=== PATIENT | male | born 1950 | race Caucasian/White ===

== ENCOUNTER 2017-04-16 22:52 | Observation (INO) | payer MEDICARE, OTHER ==
[2017-04-16 23:05] VITALS: TEMP 98.1
[2017-04-16] MEDS ORDERED: RANITIDINE HCL 150 MG TABLET (FP) PO ONE (23:39)
[2017-04-16] MEDS ORDERED: BISMUTH SUBSALICYLATE 262 MG TAB.CHEW PO ONE (23:39)
[2017-04-16] MEDS ORDERED: MAG HYDROX/AL HYDROX/SIMETH 30 ML UNIT-DOSE CUP PO ONE (23:39)
[2017-04-16] MEDS ORDERED: MAG HYDROX/AL HYDROX/SIMETH 30 ML UNIT-DOSE CUP ONE (23:47)
[2017-04-16] MEDS ORDERED: RANITIDINE HCL 150 MG TABLET (FP) ONE (23:47)
--- NOTE | 2017-04-16 23:49 | PDOC ---
History of Present Illness - General Chief Complaint: Blood Pressure Problem Stated Complaint: HIGH BP Time Seen by Provider: 04/16/17 23:22 - History of Present Illness Initial Comments: 04/16/17 23:41 66 yo M with h/o HTN, HLD, who presents with epigastric pain. Pt reports unrelenting, stable, substernal burning pain of 2 days duration that has improved with milk of magnesia. Pain worse with food and associated with nausea without vomitting, and 1 episode of watery stool 3 days ago. Pt. attributes pain to elevated blood pressure (192/100 at 1700) with SBP 170's for past 2 days. He complains of LEGER, but denies vision changes, cough, SOB, flank pain, hematuria. lightheadedness, weakness, chest pain, slurred speech. Also denies fevers/chills, abdominal pain, constipation/diarrhea, urinary complaints. Reports adherence to medication regimen with Metoprolol 25 mg, Amlodipine 2.5mg , and Lisinopril/HCTZ 10/12.5. Past History - Past Medical History Allergies/Adverse Reactions: Allergies Allergy/AdvReac Type Severity Reaction Status Date / Time No Known Allergies Allergy Verified 09/06/15 23:44 Home Medications: Ambulatory Orders Aspirin [ASA -] 81 mg PO DAILY 05/26/15 Amlodipine Besylate [Norvasc -] 2.5 mg PO DAILY 07/10/15 Atorvastatin Ca [Lipitor] 10 mg PO HS 07/10/15 Fluoxetine HCl [Prozac] 20 mg PO DAILY 04/16/17 Gabapentin 100 mg PO DAILY 04/16/17 Lisinopril/Hydrochlorothiazide [Lisinopril-Hctz 10-12.5 mg Tab] 1 each PO DAILY 04/16/17 Meloxicam 7.5 mg PO DAILY PRN 04/16/17 Metoprolol Tartrate 25 mg PO HS 04/16/17 HTN: Yes Hypercholesterolemia: Yes - Immunization History Immunization Up to Date: Yes - Suicide/Smoking/Psychosocial Hx Smoking History: Never smoked Have you smoked in the past 12 months: No Hx Alcohol Use: No Drug/Substance Use Hx: No Substance Use Type: None Review of Systems - Review of Systems Comments:: 04/16/17 23:53 GENERAL/CONSTITUTIONAL: No fever or chills. No weakness. HEAD, EYES, EARS, NOSE AND THROAT: No change in vision. No ear pain or discharge. No sore throat.- CARDIOVASCULAR: No chest pain or shortness of breath RESPIRATORY: No cough, wheezing, or hemoptysis. GASTROINTESTINAL: No nausea, vomiting, diarrhea or constipation. GENITOURINARY: No dysuria, frequency, or change in urination. MUSCULOSKELETAL: No joint or muscle swelling or pain. No neck or back pain. SKIN: No rash NEUROLOGIC: + Headache. No vertigo, loss of consciousness, or change in strength /sensation. ENDOCRINE: No increased thirst. No abnormal weight change HEMATOLOGIC/LYMPHATIC: No anemia, easy bleeding, or history of blood clots. ALLERGIC/IMMUNOLOGIC: No hives or skin allergy. *Physical Exam - Vital Signs Last Vital Signs Temp Pulse Resp BP Pulse Ox 98.1 F 103 H 16 169/89 99 04/16/17 23:00 04/16/17 23:00 04/16/17 23:00 04/16/17 23:13 04/16/17 23:00 - Physical Exam Comments: 04/16/17 23:53 GENERAL: Awake, alert, and fully oriented, in no acute distress HEAD: No signs of trauma, normocephalic, atraumatic EYES:Absent papilledema, or retinal vessel engorgement. PERRLA, EOMI, sclera anicteric, conjunctiva clear ENT: Auricles normal inspection, hearing grossly normal, nares patent, oropharynx clear without exudates. Moist mucosa NECK: Normal ROM, supple, no lymphadenopathy, JVD, or masses LUNGS: No distress, speaks full sentences, clear to auscultation bilaterally HEART: Regular rate and rhythm, normal S1 and S2, no murmurs, rubs or gallops, peripheral pulses normal and equal bilaterally. ABDOMEN: + Ventral hernia. Soft, nontender, normoactive bowel sounds. No guarding, no rebound. No masses EXTREMITIES : Normal inspection, Normal range of motion, no edema. No clubbing or cyanosis. NEUROLOGICAL: Cranial nerves II through XII grossly intact. Normal speech, normal gait, no focal sensorimotor deficits SKIN: Warm, Dry, normal turgor, no rashes or lesions noted. Heart Score/ECG Review - History History: Slightly suspicious - Electrocardiogram EKG: Normal - Age Age: >/= 65 - Risk Factors Risk Factors Heart Score: Yes Hx Hypercholesterolemia, Yes Hx Hypertension, Yes Hx Diabetes, Yes Positive family hx of cardiac disease Based on the list above the patient has:: >/=3 risk factors or Hx atherosclerotic disease - Troponin Troponin: </= normal limit - Score Heart Score - Total: 4 - ECG Intrepretation Rhythm: Regular Rhythm - [place]: Normal - ECG Impressions Comment:: 04/17/17 01:59 EKG: NSR absent T wave inversion, No ST elevation, Absent T wave inversion. ED Treatment Course - LABORATORY CBC & Chemistry Diagram: 04/17/17 00:01 04/17/17 00:01 Medical Decision Making - Medical Decision Making 04/16/17 23:56 66 yo M with h/o HTN, HLD, who presents with burning epigastric pain and nausea of 2 days duration. No other associated symptoms. He attributes symptoms to HTN , with isolated BP of 192/100and elevated SBP 170's for 2 days despite med compliance. No evidence of end organ damage on physical exam or history. Physical exam unremarkable. BP 169/89 on arrival. Pain most likely 2/2 GERD/ Dyspepsia. Low suspicion for cholelithiasis, pancreatitis, or ACS/ID. ED Course: CBC, CMP, Lipase, EKG Maloox, Pepcid, Ranitidine 04/17/17 01:55 Heart Score 4-6 13% risk of MACE. Admit for obs/cardiac consult. 04/17/17 01:56 AST/ALT: 58/120 CK MB 4.715 04/17/17 01:59 EKG: NSR Admitting [facility] Consulted. Checked Out to B[employer]INFORMAT[employer] ENGINEER Terri Fragoso *DC/Admit/Observation/Transfer Diagnosis at time of Disposition: Hypertension - Discharge Dispostion Admit: Yes - Referrals Referrals: Anastacio Arriola MD [Primary Care Provider] -
[2017-04-17 00:08] LABS: BASOPHIL 0.5 % (0-2.0); EOSINOPHIL 2.2 % (0-4.5); MCH 25.9 pg (25.7-33.7); MCHC 33.6 g/dl (32.0-35.9); MEAN CELL VOLUME 77.2 fl (80-96); MEAN PLT VOLUME 7.9 fl (7.5-11.1); NEUTROPHILS 61.3 % (42.8-82.8); PLATELET COUNT 181 K/MM3 (134-434); RDW 13.9 % (11.9-15.9); WHITE BLOOD COUNT 7.2 K/mm3 (4.0-10.0)
[2017-04-17 00:47] LABS: ALBUMIN 4.1 g/dl (3.4-5.0); ANION GAP 10 (8-16); BILIRUBIN,TOTAL 0.5 mg/dL (0.2-1.0); CALCIUM 8.8 mg/dL (8.5-10.1); CO2 28 mmol/L (21-32); CREATININE 0.8 mg/dL (0.7-1.3); GLUCOSE,RANDOM 110 mg/dL (74-106); SGOT/AST 58 U/L (15-37); SGPT/ALT 120 U/L (12-78); TOT PROT 7.9 g/dl (6.4-8.2)
[2017-04-17 00:50] LABS: ALK PHOS 113 U/L (45-117)
[2017-04-17 00:59] LABS: CPK 524 IU/L (39-308); TROPONIN I < 0.02 ng/ml (0.00-0.05)
[2017-04-17] MEDS ORDERED: ASPIRIN 325 MG ENTERIC COATED TABLET (FP) PO ONE (01:53)
--- NOTE | 2017-04-17 02:02 | PDOC ---
Attending Attestation - Resident Resident Name: Jesus Rinaldison - ED Attending Attestation I have performed the following: I have examined & evaluated the patient, The case was reviewed & discussed with the resident, I agree w/resident's findings & plan, Exceptions are as noted - HPI HPI: 04/17/17 01:54 66-year-old male with history of hypertension, presents to the ER complaining of intermittent, substernal chest burning for the past 3 days, intermittently exacerbated by food, without nausea/vomiting/diarrhea/melena/bright red blood per rectum. - Physicial Exam PE: 04/17/17 01:54 Patient is awake and alert, nontoxic-appearing, mildly hypertensive on initial evaluation. EXAMINATION CONSTITUTIONAL: Well-appearing; well-nourished; in no apparent distress HEAD: Normocephalic; atraumatic EYES: PERRL; EOM intact ENMT: External appears normal; normal oropharynx NECK: Supple; non-tender; no cervical lymphadenopathy CARD: Normal S1, S2; no murmurs, rubs, or gallops RESP: Normal chest excursion with respiration; breath sounds clear and equal bilaterally; no wheezes, rhonchi, or rales ABD: Soft, non-distended; non-tender; no palpable organomegaly, + easily reducible ventral hernia; EXT: Normal ROM in all four extremities; non-tender to palpation; distal pulses intact SKIN: Warm, dry, no rash NEURO: No focal neurological deficiencies. - Medical Decision Making 04/17/17 01:55 66-year-old male with history of hypertension presents with intermittent substernal chest discomfort. Differential diagnoses includes dyspepsia versus gastritis versus esophagitis versus ACS. We will obtain CBC/CMP/cardiac profile. We'll administer H2 blockers, Maalox for suspected dyspepsia; We'll administer aspirin for ACS. EKG shows no evidence of acute ischemia. Chest x- ray reveals no evidence of infiltrate or effusion. Patient's heart score is noted to be 4. Patient will be placed in observation/telemetry for further cardiac evaluation. Heart Score/ECG Review - History History: Moderately suspicious - Electrocardiogram EKG: Normal - Age Age: >/= 65 - Risk Factors Risk Factors Heart Score: Yes Hx Hypertension Based on the list above the patient has:: 1-2 risk factors - Troponin Troponin: </= normal limit - Score Heart Score - Total: 4
--- NOTE | 2017-04-17 02:27 | HP ---
CHIEF COMPLAINT: Epigastric and Chest Pain PCP: Dr. Anastacio Arriola HISTORY OF PRESENT ILLNESS: This is a 66 y/o man with a past medical history of HTN, HLD. Who presents to the ED with epigastric pain and burning to midsternum x 2 days. Patient is Lithuanian speaking, [employer] line used #[id number]. Patient reports having a subjective fever which he describes "as his head felt hot". Patient reports the pain as intermittent burning worse when he eats food. Patient reports having one loose BM. Patient denies cough, dizziness, palpitations, nausea, vomiting, diarrhea, constipation, dsyuria. ER course was notable for: (1) Troponin I <0.02 (2) EKG (3) AST 58, ALT 120, Alk Phos 113 Recent Travel: None PAST MEDICAL HISTORY: HTN HLD PAST SURGICAL HISTORY: Social History: Smoking: Never Alcohol: Former- last drink 10 yrs ago Drugs: Denies Family History: Non-Contributory Allergies No Known Allergies Allergy (Verified 09/06/15 23:44) HOME MEDICATIONS: Home Medications Medication Instructions Recorded Aspirin [ASA -] 81 mg PO DAILY 05/26/15 Amlodipine Besylate [Norvasc -] 2.5 mg PO DAILY 07/10/15 Atorvastatin Ca [Lipitor] 10 mg PO HS 07/10/15 Fluoxetine HCl [Prozac] 20 mg PO DAILY 04/16/17 Gabapentin 100 mg PO DAILY 04/16/17 Lisinopril/Hydrochlorothiazide 1 each PO DAILY 04/16/17 [Lisinopril-Hctz 10-12.5 mg Tab] Meloxicam 7.5 mg PO DAILY PRN 04/16/17 Metoprolol Tartrate 25 mg PO HS 04/16/17 REVIEW OF SYSTEMS CONSTITUTIONAL: fever Absent: chills, diaphoresis, generalized weakness, malaise, loss of appetite, weight change HEENT: Absent: rhinorrhea, nasal congestion, throat pain, throat swelling, difficulty swallowing, mouth swelling, ear pain, eye pain, visual changes CARDIOVASCULAR: Absent: chest pain, syncope, palpitations, irregular heart rate, lightheadedness , peripheral edema RESPIRATORY: shortness of breath Absent: cough, dyspnea with exertion, orthopnea, wheezing, stridor, hemoptysis GASTROINTESTINAL: abdominal pain Absent: abdominal distension, nausea, vomiting, diarrhea, constipation, melena , hematochezia GENITOURINARY: Absent: dysuria, frequency, urgency, hesitancy, hematuria, flank pain, genital pain MUSCULOSKELETAL: Absent: myalgia, arthralgia, joint swelling, back pain, neck pain SKIN: Absent: rash, itching, pallor HEMATOLOGIC/IMMUNOLOGIC: Absent: easy bleeding, easy bruising, lymphadenopathy, frequent infections ENDOCRINE: Absent: unexplained weight gain, unexplained weight loss, heat intolerance, cold intolerance NEUROLOGIC: headache, Absent: focal weakness or paresthesias, dizziness, unsteady gait, seizure, mental status changes, bladder or bowel incontinence PSYCHIATRIC: Absent: anxiety, depression, suicidal or homicidal ideation, hallucinations. PHYSICAL EXAMINATION Vital Signs - 24 hr 04/16/17 04/16/17 23:00 23:13 Temperature 98.1 F Pulse Rate 103 H Respiratory 16 Rate Blood Pressure 181/89 Blood Pressure 169/89 [Left Arm] O2 Sat by Pulse 99 Oximetry (%) GENERAL: Awake, alert, and fully oriented, in no acute distress. HEAD: Normal with no signs of trauma. EYES: Pupils equal, round and reactive to light, extraocular movements intact, sclera anicteric, no lid lag. conjunctiva injected EARS, NOSE, THROAT: Ears normal, nares patent, oropharynx clear without exudates. Dry mucous membranes. NECK: Normal range of motion, supple without lymphadenopathy, JVD, or masses. LUNGS: Breath sounds equal, clear to auscultation bilaterally. No wheezes, and no crackles. No accessory muscle use. HEART: Regular rate and rhythm, normal S1 and S2 without murmur, rub or gallop. ABDOMEN: Obese, soft, nontender, normoactive bowel sounds, no guarding, no rebound, no masses. No hepatomegaly or splenomegaly. distended, reducible ventral hernia MUSCULOSKELETAL: Normal range of motion at all joints. No bony deformities or tenderness. No CVA tenderness. UPPER EXTREMITIES: 2+ pulses, warm, well-perfused. No cyanosis. No clubbing. No peripheral edema. LOWER EXTREMITIES: 2+ pulses, warm, well-perfused. No calf tenderness. No peripheral edema. NEUROLOGICAL: Cranial nerves II-XII intact. Normal speech. Gait not observed. PSYCHIATRIC: Cooperative. Good eye contact. Appropriate mood and affect. SKIN: Warm, dry, normal turgor, no rashes or lesions noted, normal capillary refill. Jaundiced Laboratory Results - last 24 hr 04/17/17 04/17/17 04/17/17 00:01 00:01 00:01 WBC 7.2 RBC 6.01 H Hgb 15.6 Hct 46.5 MCV 77.2 L MCH 25.9 MCHC 33.6 RDW 13.9 Plt Count 181 MPV 7.9 Neutrophils % 61.3 Lymphocytes % 26.0 Monocytes % 10.0 Eosinophils % 2.2 Basophils % 0.5 Sodium 139 Potassium 3.5 Chloride 101 Carbon Dioxide 28 Anion Gap 10 BUN 18 Creatinine 0.8 Creat Clearance w eGFR > 60 Random Glucose 110 H Calcium 8.8 Total Bilirubin 0.5 AST 58 H D ALT 120 H D Alkaline Phosphatase 113 Creatine Kinase Creatine Kinase Index CK-MB (CK-2) Troponin I Total Protein 7.9 Albumin 4.1 Lipase 179 04/17/17 00:29 WBC RBC Hgb Hct MCV MCH MCHC RDW Plt Count MPV Neutrophils % Lymphocytes % Monocytes % Eosinophils % Basophils % Sodium Potassium Chloride Carbon Dioxide Anion Gap BUN Creatinine Creat Clearance w eGFR Random Glucose Calcium Total Bilirubin AST ALT Alkaline Phosphatase Creatine Kinase 524 H Creatine Kinase Index 0.8 CK-MB (CK-2) 4.715 H Troponin I < 0.02 Total Protein Albumin Lipase ASSESSMENT/PLAN: This is a 66 y/o man with a PMHx of: HTN, HLD. Placed on Tele Observation for Chest Pain r/o ACS, Epigastric Pain for further evaluation of their emergent condition. Plan: 1. Chest Pain - r/o ACS vs Dyspepsia - Tele monitoring - HEART Score 4 - ALEX Risk Index 26 (low) - Appreciate Cardiac Consult - Serial Enzymes - EKG- NSR with no ST or TWI - Chest Xray- image no infiltrates no effusions - Asa, GI cocktail given in ED with improvement - Continue Asa - Pepcid - f/u with GI in outpatient 2. Epigastric Pain - Likely Dyspepsia - r/o ACS - On exam abdomen distended, BS present, +splenomegaly - Abdominal sono in am 3. HTN - Not well controlled - Monitor BP - Continue home meds - Monitor renal function 4. Hyperlipidemia - Continue Lipitor - LFTs mildly elevated, will continue to monitor and treat accordingly 5. Transaminitis - Likely secondary to statin - Will continue to monitor LFTs, and adjust accordingly 6. FEN - Tolerates PO Fluids - Replete lytes as indicated - Low Na Diet as tolerated 7. DVT Prophylaxis - OOB - SCDs Code Status: Full Code Problem List - Problem (1) Burning chest pain Code(s): R07.89 - OTHER CHEST PAIN (2) Acute epigastric pain Code(s): R10.13 - EPIGASTRIC PAIN (3) Hypertension Code(s): I10 - ESSENTIAL (PRIMARY) HYPERTENSION (4) Elevated LFTs Code(s): R79.89 - OTHER SPECIFIED ABNORMAL FINDINGS OF BLOOD CHEMISTRY (5) Elevated serum glucose Code(s): R73.9 - HYPERGLYCEMIA, UNSPECIFIED (6) HLD (hyperlipidemia) Code(s): E78.5 - HYPERLIPIDEMIA, UNSPECIFIED Visit type - Emergency Visit Emergency Visit: Yes ED Registration Date: 04/17/17 Care time: The patient presented to the Emergency Department on the above date and was hospitalized for further evaluation of their emergent condition. - New Patient This patient is new to me today: Yes Date on this admission: 04/17/17 - Critical Care Critical Care patient: No
[2017-04-17] MEDS ORDERED: ASPIRIN 325 MG ENTERIC COATED TABLET (FP) ONE (02:46)
[2017-04-17 08:02] LABS: AMYLASE 62 U/L (25-115); CHOLESTEROL 179 mg/dL (50-200); MAGNESIUM 2.5 mg/dL (1.8-2.4); PHOSPHOROUS 2.3 mg/dL (2.5-4.9)
[2017-04-17 08:04] LABS: CPK 363 IU/L (39-308); TROPONIN I < 0.02 ng/ml (0.00-0.05)
--- NOTE | 2017-04-17 09:04 | EKG ---
Test Reason : Blood Pressure : / mmHG Vent. Rate : 085 BPM Atrial Rate : 085 BPM P-R Int : 138 ms QRS Dur : 078 ms QT Int : 382 ms P-R-T Axes : 048 028 059 degrees QTc Int : 454 ms NORMAL SINUS RHYTHM NORMAL ECG WHEN COMPARED WITH ECG OF 26-MAY-2015 21:41, T WAVE INVERSION NO LONGER EVIDENT IN INFERIOR LEADS Confirmed by QUINN GOMEZ, JOSE GUADALUPE ([id number]) on 04/17/2017 9:04:16 AM Referred By: Confirmed By:JOSE GUADALUPE BALL MD
[2017-04-17] MEDS ORDERED: GABAPENTIN 100 MG CAPSULE (FP) PO SCH (10:00)
[2017-04-17] MEDS ORDERED: FLUoxetine HCL 20 MG CAPSULE (FP) PO SCH (10:00)
[2017-04-17] MEDS ORDERED: amLODIPine BESYLATE 2.5 MG TABLET (FP) PO SCH ×3 (10:00→11:11)
[2017-04-17] MEDS ORDERED: LISINOPRIL 10 MG TABLET (FP) PO SCH (10:00)
[2017-04-17] MEDS ORDERED: HYDROCHLOROTHIAZIDE 12.5 MG CAPSULE (FP) PO SCH (10:00)
[2017-04-17] MEDS ORDERED: FAMOTIDINE 20 MG/50 ML IVPB 50 ML IVPB SCH (10:00)
--- NOTE | 2017-04-17 10:15 | CONSULT ---
Consult - text type - Consultation Consultation Note: Cardiology 66 yo M with h/o HTN, HLD, who presents with epigastric pain, substernal burning pain of 2 days that has improved with milk of magnesia. Pain worse with food and associated with nausea without vomitting, and 1 episode of watery stool 3 days ago. Pt. attributes pain to elevated blood pressure (192/100 at 1700) with SBP 170's for past 2 days. RX Metoprolol 25 mg, Amlodipine 2.5mg, and Lisinopril/HCTZ 03/31.5. social NA allergy NA FH NA Op NA PMH HTN, lipids PE: vitals stable normal cardiio-pulmonary exam abdomen soft no leg edema Impression: atypical chest pains No evidence of RI, CHF, arrythmia or cardiac decompensation BP elevated, borderline control currently Rec: He can be discharged with stress test Tuesday in my office, but if stays, can order in-hosp for Tuesday Amlodipine to 5 mg daily
[2017-04-17 10:49] VITALS: BMI 34.2
--- NOTE | 2017-04-17 13:14 | DS ---
Physical Exam: SUBJECTIVE: Patient seen and examined OBJECTIVE: Vital Signs Period Temp Pulse Resp BP Sys/[place] Pulse Ox Last 24 Hr 80-95 18-18 152-163/90-98 95-98 PHYSICAL EXAM GENERAL: The patient is awake, alert, and fully oriented, in no acute distress. HEAD: Normal with no signs of trauma. EYES: PERRL, extraocular movements intact, sclera anicteric, conjunctiva clear. ENT: Ears normal, nares patent, oropharynx clear without exudates, moist mucous membranes. NECK: Trachea midline, full range of motion, supple. LUNGS: Breath sounds equal, clear to auscultation bilaterally, no wheezes, no crackles, no accessory muscle use. HEART: Regular rate and rhythm, S1, S2 without murmur, rub or gallop. ABDOMEN: Soft, nontender, nondistended, normoactive bowel sounds, no guarding, no rebound, no hepatosplenomegaly, no masses. EXTREMITIES: 2+ pulses, warm, well-perfused, no edema. NEUROLOGICAL: Cranial nerves II through XII grossly intact. Normal speech, gait not observed. PSYCH: Normal mood, normal affect. SKIN: Warm, dry, normal turgor, no rashes or lesions noted. LABS Laboratory Results - last 24 hr 04/17/17 04/17/17 04/17/17 06:00 06:00 06:00 Hemoglobin A1c % 5.7 Phosphorus 2.3 L Magnesium 2.5 H Creatine Kinase 363 H Creatine Kinase Index 0.9 CK-MB (CK-2) 3.297 Troponin I < 0.02 Triglycerides 185 H Cholesterol 179 Total LDL Cholesterol 111 H HDL Cholesterol 45 Total Amylase 62 HOSPITAL COURSE: Date of Admission:04/17/17 Date of Discharge: 04/17/17 Minutes to complete discharge: 35 Discharge Summary Reason For Visit: CHEST PAIN Current Active Problems Acute epigastric pain (Acute) Burning chest pain (Acute) Elevated LFTs (Acute) Elevated serum glucose (Acute) HLD (hyperlipidemia) (Acute) Hypertension (Acute) Condition: Improved - Instructions Diet, Activity, Other Instructions: You are to have a cardiac stress test tomorrow morning at Dr. Whittington's office. His address and phone number are included in this discharge packet. Call his office at 9:00am tomorrow to find out the time of your test. IT IS VERY IMPORTANT YOU FOLLOW UP WITH DR. WHITTINGTON. A new prescription has been sent to your pharmacy for an INCREASED dose of amlodipine. Be sure to take this higher dose. Be sure to take all of your blood pressure medications every day. Return to the emergency department for any new or worsening symptoms. Referrals: Anastacio Arriola MD [Primary Care Provider] - Luca Whittington MD [Staff Physician] - 04/18/17 9:00 am Disposition: HOME - Home Medications Comprehensive Discharge Medication List: Ambulatory Orders Aspirin [ASA -] 81 mg PO DAILY 05/26/15 Atorvastatin Ca [Lipitor] 10 mg PO HS 07/10/15 Fluoxetine HCl [Prozac] 20 mg PO DAILY 04/16/17 Gabapentin 100 mg PO DAILY 04/16/17 Lisinopril/Hydrochlorothiazide [Lisinopril-Hctz 10-12.5 mg Tab] 1 each PO DAILY 04/16/17 Metoprolol Tartrate 25 mg PO HS 04/16/17 Amlodipine Besylate [Norvasc -] 5 mg PO DAILY #30 tablet 04/17/17 This patient is new to me today: Yes Date on this admission: 04/17/17 Emergency Visit: Yes ED Registration Date: 04/17/17 Care time: The patient presented to the Emergency Department on the above date and was hospitalized for further evaluation of their emergent condition. Critical Care patient: No - Discharge Referral Referred to [facility] No
[2017-04-17 13:40] VITALS: BP 148/83; PULSE 83
[2017-04-17] MEDS ORDERED: METOPROLOL TARTRATE 25 MG TABLET (FP) PO SCH (22:00)
[2017-04-17] MEDS ORDERED: ATORVASTATIN CA 10 MG TABLET (FP) PO SCH (22:00)
[2017-04-18] MEDS ORDERED: ASPIRIN 81 MG CHEWABLE TABLETS PO SCH (10:00)
== END 2017-04-17 13:46 | disposition home or self-care (01) ==
LOC: JER 22:52 → JERBED 04-17 03:09
PROVIDERS: ADMIT Internal Medicine; ATTEND Nurse Practitioner Acute Care
DX: I10 Essential (primary) hypertension (principal); E78.5 Hyperlipidemia, unspecified; Z79.82 Long term (current) use of aspirin; R74.0 Nonspecific elevation of levels of transaminase and lactic acid dehydrogenase [LDH]; R07.9 Chest pain, unspecified; R94.5 Abnormal results of liver function studies; R73.9 Hyperglycemia, unspecified
CPT/HCPCS: 36415; 71010-TC; 76705-TC; 80053; 80061; 82150; 82550; 82553; 83036; 83690; 83721; 83735; 84100; 84484; 85025; 93005; 93010; 99284-25; G0378

== ENCOUNTER 2019-01-06 12:25 | Emergency (ER) | payer MEDICARE, OTHER ==
[2019-01-06 12:29] VITALS: BP 154/69; PULSE 74; TEMP 97.8; BMI 33.3
[2019-01-06] MEDS ORDERED: MAG HYDROX/AL HYDROX/SIMETH 30 ML UNIT-DOSE CUP PO ONE (13:08)
[2019-01-06] MEDS ORDERED: RANITIDINE HCL 150 MG TABLET (FP) PO ONE (13:08)
--- NOTE | 2019-01-06 13:15 | PDOC ---
History of Present Illness - General Chief Complaint: Shortness of Breath Stated Complaint: SOB Time Seen by Provider: 01/06/19 12:55 History Source: Patient Exam Limitations: No Limitations - History of Present Illness Initial Comments: 01/06/19 13:15 68 yo male pmh of HTN, HLD and GERD who presents to the ED with non exertional substernal chest burning. Pt reports eating normal meal of rice and beans last night, laying down in bed right after leading to dry throat, substernal chest burning and feelings of his throat closing with associated belching last night. Symptoms have resolved however to to severity of symptoms, pt came to the ED. Pt has hx of GERD, diagnosed by EGD and put on omeprazole, has not taken it in 3 months due to not seeing is doctor for refills. Pt last stress echo 1 year ago reported as normal (does not know oracle analyst name), no hx of VA, non exertional pain, no recent travel, calf tenderness, SOB, F/C/N/V, new back pain. Past History - Past Medical History Allergies/Adverse Reactions: Allergies Allergy/AdvReac Type Severity Reaction Status Date / Time No Known Allergies Allergy Verified 01/06/19 12:29 Home Medications: Ambulatory Orders Aspirin [ASA -] 81 mg PO DAILY 05/26/15 Atorvastatin Ca [Lipitor] 10 mg PO HS 07/10/15 Fluoxetine HCl [Prozac] 20 mg PO DAILY 04/16/17 Gabapentin 100 mg PO DAILY 04/16/17 Lisinopril/Hydrochlorothiazide [Lisinopril-Hctz 10-12.5 mg Tab] 1 each PO DAILY 04/16/17 Metoprolol Tartrate 25 mg PO HS 04/16/17 Amlodipine Besylate [Norvasc -] 5 mg PO DAILY #30 tablet 04/17/17 COPD: No Diabetes: Yes HTN: Yes Hypercholesterolemia: Yes - Immunization History Immunization Up to Date: Yes - Suicide/Smoking/Psychosocial Hx Smoking History: Never smoked Have you smoked in the past 12 months: No Hx Alcohol Use: No Drug/Substance Use Hx: No Substance Use Type: None *Physical Exam - Vital Signs Last Vital Signs Temp Pulse Resp BP Pulse Ox 97.8 F 74 18 154/69 99 01/06/19 12:27 01/06/19 12:27 01/06/19 12:27 01/06/19 12:27 01/06/19 12:27 Heart Score/ECG Review - History History: Slightly suspicious - Age Age: >/= 65 - Risk Factors Risk Factors Heart Score: Yes Hx Hypercholesterolemia, Yes Hx Hypertension ED Treatment Course - LABORATORY CBC & Chemistry Diagram: 01/06/19 13:48 01/06/19 13:48 Medical Decision Making - Medical Decision Making 01/06/19 16:18 pt likely suffering from GERD given maalox and ranitidine will send omeprazole to pts pharmacy *DC/Admit/Observation/Transfer Diagnosis at time of Disposition: Burning chest pain, GERD (gastroesophageal reflux disease) - Discharge Dispostion Disposition: HOME Condition at time of disposition: Stable Decision to Admit order: No - Referrals Referrals: Nicolás Bassett MD [Primary Care Provider] - - Patient Instructions Printed Discharge Instructions: DI for Gastroesophageal Reflux Disease (GERD), DI for Atypical Chest Pain, DI for Chest Pain Additional Instructions: Consulte a dial mdico de cabecera dentro de las prximas 48 horas y uma tremaine colton con dial cardilogo o con el cardilogo, el Dr. Arroyo, quien se lo remiti lo antes posible. [place] el medicamento Omeprozol kane se lo hayan recetado. Regrese a la lavell de emergencias para los sntomas nuevos o relacionados que incluyen, entre otros: dolor en el pecho, dificultad para respirar, fiebre, incapacidad para comer o beber. [place] Print Language: SLOV[place] - Post Discharge Activity
[2019-01-06] MEDS ORDERED: MAG HYDROX/AL HYDROX/SIMETH 30 ML UNIT-DOSE CUP ONE (13:16)
[2019-01-06 14:19] LABS: BASO % 0.2 % (0-2.0); EOS % 0.4 % (0-4.5); HEMATOCRIT 48.1 % (35.4-49); HEMOGLOBIN 15.9 GM/dL (11.7-16.9); LYMPH % 13.8 % (8-40); MCHC 33.1 g/dl (32.0-35.9); MEAN CELL VOLUME 78.6 fl (80-96); MEAN PLT VOLUME 8.3 fl (7.5-11.1); MONO % 8.1 % (3.8-10.2); NEUT % 77.5 % (42.8-82.8); PLATELET COUNT 178 K/MM3 (134-434); RBC 6.12 M/mm3 (4.00-5.60); WHITE BLOOD COUNT 9.4 K/mm3 (4.0-10.0)
[2019-01-06 14:28] LABS: ALK PHOS 95 U/L (45-117); ANION GAP 9 MMOL/L (8-16); BILIRUBIN,TOTAL 0.8 mg/dL (0.2-1); CALCIUM 8.9 mg/dL (8.5-10.1); CHLORIDE 102 mmol/L (98-107); CO2 27 mmol/L (21-32); CREATININE 0.9 mg/dL (0.55-1.3); GLUCOSE,RANDOM 127 mg/dL (74-106); POTASSIUM 3.3 mmol/L (3.5-5.1); SGOT/AST 44 U/L (15-37); SGPT/ALT 102 U/L (13-61); SODIUM 138 mmol/L (136-145); TOT PROT 7.5 g/dl (6.4-8.2)
[2019-01-06] MEDS ORDERED: POTASSIUM CHLORIDE TABS 20 MEQ TABLET.ER (FP) PO ONE (14:34)
--- NOTE | 2019-01-06 15:48 | PDOC ---
Documentation entered by Harley Jack SCRIBE, acting as scribe for Lorie Pearson MD. Lorie Pearson MD: This documentation has been prepared by the Guero carias Xhesika, SCRIBE, under my direction and personally reviewed by me in its entirety. I confirm that the documentation accurately reflects all work, treatment, procedures, and medical decision making performed by me. Attending Attestation - Resident Resident Name: Jackson Pineda - ED Attending Attestation I have performed the following: I have examined & evaluated the patient, The case was reviewed & discussed with the resident, I agree w/resident's findings & plan - HPI HPI: 01/06/19 13:42 The patient is a 68 year old male with a significant past medical history of HTN , HLD, and GERD (diagnosed by EGD and put on omeprazole, hasnt taken in 3 months) who presents to the ED with one day of substernal chest burning. The patient states he ate rice and beans last night, went to lay down in bed and started endorsing intermittent belching, and dry throat sensation that felt like his throat is closing, however, the patient states his symptoms have since self resolved. Patient states he had a stress test 1 year ago which was normal, per notes has seen Dr Whittington in 2017. 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 NAD, well appearing, EOMI, PERRL, MMM, nl conjunctiva, anicteric; neck supple. lungs clear, RRR, abdomen soft nontender. Back nontender. MASCORRO x4, no focal neuro deficits. No peripheral edema. normal color for ethnicity, WWP. - Medical Decision Making 01/06/19 15:44 Vital Signs Temp Pulse Resp BP Pulse Ox 97.8 F 74 18 154/69 99 01/06/19 12:27 01/06/19 12:27 01/06/19 12:27 01/06/19 12:27 01/06/19 12:27 See HPI for details. Prior notes reviewed, including admissions, discharges and consultations. Vital signs reviewed, wnl. DDx chest pain: ACS, coronary vasospasm, NSTEMI, arrhythmia, unstable angina, PUD, esophageal spasm, GERD, gastritis, costochondritis, pneumonia, pleurisy, dehydration, electrolyte/metabolic derangements. gastritis, dyspepsia. clinically doubt PE/dissection with presentation laboratory results and imaging reviewed, basic labs and lytes wnl, CXR_no acute pathology Cardiac panel_neg EKG normal sinus rhythm at 71 bpm, no interval abnormalities, narrow QRS, ST and T wave segments and morphology normal. Nonspecific T wave abnormalities ED course -interventions: GI cocktail, PO potassium, reassess feels improved, no cp or sob. Abdomen soft and nontender. Pt to be discharged in stable condition. Patient made aware of clinical impression, treatment recommendations and disposition plan, return precautions discussed (including but not limited to new or persistent/worsening symptoms, pain, fevers, or signs of infection, chest pain, respiratory distress, inability to tolerate oral intake, dehydration, syncope, or neurologic changes) . 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 continue with supportive care, avoid triggers and precipitants. All questions answered to patient's satisfaction and expressed understanding and comfort with this. At the time of discharge, the patient is alert, clinically improved, tolerating po and verbalizes understanding of instructions, satisfied with the care received and felt comfortable with the plan. Patient does not suffer from an acute life- threatening medical condition at this time and is safe for outpatient follow- up. 01/06/19 16:34 Heart Score/ECG Review #1 ECG reviewed & interpreted by me at: 13:35 General ECG Interpretation: Sinus Rhythm, Normal Rate, Normal Intervals 01/06/19 15:49 EKG normal sinus rhythm at 71 bpm, no interval abnormalities, narrow QRS, ST and T wave segments and morphology normal. Nonspecific T wave abnormalities
--- NOTE | 2019-01-06 23:57 | EKG ---
Test Reason : Blood Pressure : / mmHG Vent. Rate : 071 BPM Atrial Rate : 071 BPM P-R Int : 138 ms QRS Dur : 080 ms QT Int : 380 ms P-R-T Axes : 036 020 069 degrees QTc Int : 412 ms NORMAL SINUS RHYTHM NONSPECIFIC ST ABNORMALITY ABNORMAL ECG WHEN COMPARED WITH ECG OF 17-APR-2017 00:06, NO SIGNIFICANT CHANGE WAS FOUND Confirmed by KENDRA KRUEGER MD ([id number]) on 01/06/2019 11:57:48 PM Referred By: Confirmed By:KENDRA KRUEGER MD
== END 2019-01-06 15:15 | disposition home or self-care (01) ==
LOC: JER 12:25
DX: R07.89 Other chest pain (principal); K21.9 Gastro-esophageal reflux disease without esophagitis; E78.00 Pure hypercholesterolemia, unspecified; I10 Essential (primary) hypertension
CPT/HCPCS: 36415; 71046-TC-FY; 80053; 82550; 84484; 85025; 93005; 93010; 99282-25